=== PATIENT | male | born 1970 | race American Indian/Alaskan Native ===

== ENCOUNTER 2020-07-09 10:53 | Emergency (ER) | payer MEDICAID ==
[2020-07-09] MEDS ORDERED: MORPHINE 4 MG/1 ML INJ IV ONE (11:06)
[2020-07-09] MEDS ORDERED: ONDANSETRON 4 MG/2 ML INJ IV ONE ×2 (11:06→11:42)
--- NOTE | 2020-07-09 11:06 | Event Note ---
ED Screening Note Date of service: 07/09/20 Time: 11:05 ED Screening Note: Patient complains of upper/left-sided abdominal pain x2 days States possible history of bowel obstruction Patient appears to be very uncomfortable holding abdomen This initial assessment/diagnostic orders/clinical plan/treatment(s) is/are subject to change based on patients health status, clinical progression and re- assessment by fellow clinical providers in the ED. Further treatment and workup at subsequent clinical providers discretion. Patient/guardian urged not to elope from the ED as their condition may be serious if not clinically assessed and managed. Initial orders include: Labs
--- NOTE | 2020-07-09 11:47 | Emergency Department Report ---
ED Abdominal Pain HPI - General Chief Complaint: Abdominal Pain Stated Complaint: ABD PAIN Time Seen by Provider: 07/09/20 11:04 Source: patient Mode of arrival: Wheelchair Limitations: No Limitations - History of Present Illness Initial Comments: 49-year-old male, history of hypertension, presents to the ED with epigastric abdominal pain x3 days. Patient states pain is burning and pressure-like, nonradiating. Patient states he was seen by his PCP on yesterday who gave him a prescription for antibiotics, BP meds, and acid reflux medication. Patient reports nausea, no vomiting. He denies diarrhea or constipation. Patient denies any bloody stools or dark black stools. Patient denies any fever. Patient reports he stopped smoking and drinking approximately 6 months ago, denies any drug use. Patient hypertensive at triage. History of hypertension, noncompliant with medications. Patient states he has been off of BP meds for approximately 1 year now, states he previously took atenolol. Patient reports he re-started his blood pressure medicine this morning after seeing his doctor on yesterday and getting his medications filled. Patient reports taking lisinopril and isosorbide dinitrate. MD Complaint: abdominal pain -: days(s) (3) Location: epigastric Radiation: none Migration to: no migration Severity: severe Severity scale (0 -10): 10 Quality: burning, other (pressure) Consistency: constant Improves With: nothing Worsens With: nothing Associated Symptoms: nausea. denies: vomiting, diarrhea, fever, constipation, hematemesis, hematochezia, melena - Related Data Home Medications Medication Instructions Recorded Confirmed Last Taken Aspirin 325 mg PO ONCE 01/17/13 01/17/13 01/15/13 Omeprazole [Prilosec] 40 mg PO QDAY 01/17/13 01/17/13 01/24/13 atenoloL [Tenormin] 25 mg PO DAILY 01/17/13 01/17/13 01/24/13 Omeprazole [Prilosec] 40 mg PO QDAY 01/25/13 01/25/13 01/24/13 atenoloL [Tenormin] 25 mg PO DAILY 01/25/13 01/25/13 01/24/13 Previous Rx's Medication Instructions Recorded Last Taken Type Dicyclomine [Bentyl] 20 mg PO QID PRN #20 tablet 07/09/20 Unknown Rx Allergies Allergy/AdvReac Type Severity Reaction Status Date / Time No Known Allergies Allergy Verified 07/09/20 11:03 ED Review of Systems ROS: Stated complaint: ABD PAIN Other details as noted in HPI Comment: All other systems reviewed and negative Constitutional: denies: chills, fever Gastrointestinal: abdominal pain, nausea. denies: vomiting, diarrhea, constipation, hematemesis, melena, hematochezia ED Past Medical Hx - Past Medical History Hx Hypertension: Yes Hx Heart Attack/AMI: No Hx GERD: Yes Additional medical history: A FIB - Social History Smoking Status: Never Smoker Substance Use Type: None - Medications Home Medications: Home Medications Medication Instructions Recorded Confirmed Last Taken Type Aspirin 325 mg PO ONCE 01/17/13 01/17/13 01/15/13 History Omeprazole [Prilosec] 40 mg PO QDAY 01/17/13 01/17/13 01/24/13 History atenoloL [Tenormin] 25 mg PO DAILY 01/17/13 01/17/13 01/24/13 History Omeprazole [Prilosec] 40 mg PO QDAY 01/25/13 01/25/13 01/24/13 History atenoloL [Tenormin] 25 mg PO DAILY 01/25/13 01/25/13 01/24/13 History Dicyclomine [Bentyl] 20 mg PO QID PRN #20 tablet 07/09/20 Unknown Rx ED Physical Exam - General Limitations: No Limitations General appearance: alert, other (appears uncomfortable) - Head Head exam: Present: atraumatic, normocephalic - Eye Eye exam: Present: normal appearance, EOMI - ENT ENT exam: Present: mucous membranes moist - Neck Neck exam: Present: normal inspection - Respiratory Respiratory exam: Present: normal lung sounds bilaterally. Absent: respiratory distress - Cardiovascular Cardiovascular Exam: Present: normal rhythm, bradycardia - GI/Abdominal GI/Abdominal exam: Present: soft, tenderness (epigastric). Absent: distended - Extremities Exam Extremities exam: Present: normal inspection - Neurological Exam Neurological exam: Present: alert, oriented X3, CN II-XII intact. Absent: motor sensory deficit - Psychiatric Psychiatric exam: Present: normal affect, normal mood - Skin Skin exam: Present: warm, dry, intact, normal color ED Course Vital Signs 07/09/20 07/09/20 07/09/20 11:08 11:40 11:54 Temperature 98.6 F Pulse Rate 54 L 51 L Respiratory 24 20 20 Rate Blood Pressure Blood Pressure 225/86 221/102 [Right] O2 Sat by Pulse 100 100 100 Oximetry 07/09/20 07/09/20 07/09/20 13:01 13:42 14:02 Temperature Pulse Rate 50 L 67 75 Respiratory 16 16 Rate Blood Pressure 210/100 Blood Pressure 183/75 162/86 [Right] O2 Sat by Pulse 100 99 Oximetry ED Medical Decision Making - Lab Data Result diagrams: 07/09/20 11:10 07/09/20 11:10 - EKG Data -: EKG Interpreted by Wy EKG shows normal: sinus rhythm, axis, intervals, QRS complexes, ST-T waves Rate: bradycardia (rate 48) - EKG Data Interpretation: no acute changes - Radiology Data Radiology results: report reviewed, image reviewed - Medical Decision Making 49-year-old male with abdominal pain x3 days. Patient has history of uncontrolled hypertension, recently started BP meds this morning. Arrived in th e ED hypertensive. IV hydralazine given. BP improved from 225/86 to 162/86. Due to abdominal pain and elevated blood pressure, patient for CT chest/ abdomen/pelvis, aorta protocol. CT scan found to be normal. Patient reports improvement of pain with IV morphine and GI cocktail. Labs are unremarkable. EKG shows bradycardia, no ST changes. Troponin negative x2. Patient will be discharged at this time. Outpatient follow-up with PCP advised. Return precautions given. - Differential Diagnosis Aortic dissection, perforated viscus, pancreatitis, GERD, ACS Critical care attestation.: If time is entered above; I have spent that time in minutes in the direct care of this critically ill patient, excluding procedure time. ED Disposition Clinical Impression: Uncontrolled hypertension, Abdominal pain Disposition: - TO HOME OR SELFCARE Is pt being admited?: No Condition: Stable Instructions: Abdominal Pain, Adult, Qhog-hu-[id number], Managing Your Hypertension, Hypertension (ED) Prescriptions: Dicyclomine [Bentyl] 20 mg PO QID PRN #20 tablet PRN Reason: abdominal pain Referrals: PRIMARY CARE, [Referring] - 3-5 Days Time of Disposition: 15:18
[2020-07-09 11:49] LABS: Basophils # (Auto) 0.2 K/mm3 (0.0-0.1); Basophils % (Auto) 2.3 % (0.0-1.8); Eosinophils # (Auto) 0.5 K/mm3 (0.0-0.4); Hematocrit 47.7 % (35.5-45.6); Hemoglobin 16.2 gm/dl (11.8-15.2); Lymphocytes # (Auto) 3.1 K/mm3 (1.2-5.4); Lymphocytes % (Auto) 38.5 % (13.4-35.0); Mean Corpuscular HGB Conc 34 % (32-34); Mean Corpuscular Volume 81 fl (84-94); Monocytes # (Auto) 0.6 K/mm3 (0.0-0.8); Monocytes % (Auto) 7.6 % (0.0-7.3); Platelet Count 249 K/mm3 (140-440); Red Cell Distribution Width 14.4 % (13.2-15.2)
[2020-07-09] MEDS ORDERED: hydrALAZINE 20 MG/1 ML INJ IV ONE (12:00)
[2020-07-09 12:07] LABS: Alanine Aminotransferase 29 units/L (7-56); Albumin 4.4 g/dL (3.9-5); BUN/Creatinine Ratio 11; Blood Urea Nitrogen 11 mg/dL (9-20); Calcium 9.6 mg/dL (8.4-10.2); Hemolysis Index 4
[2020-07-09 13:04] LABS: INR 0.9 (0.87-1.13)
[2020-07-09 13:05] LABS: Partial Thromboplastin Time 25.9 Sec. (24.2-36.6)
--- NOTE | 2020-07-09 13:06 | XRay Report ---
ABDOMEN 4 VIEW(S) INDICATION / CLINICAL INFORMATION: epigastric pain. COMPARISON: None available. FINDINGS: TUBES / LINES: None. BOWEL GAS PATTERN: No dilated loops of small bowel are seen. FREE AIR / EXTRALUMINAL GAS: None seen. ADDITIONAL FINDINGS: No acute findings on the included chest radiograph. IMPRESSION: 1. No radiographic evidence of acute abdomen. Signer Name: Jorge Caro MD Signed: 07/09/2020 1:01 PM Workstation Name: [id number]
[2020-07-09 13:42] LABS: Bilirubin,Urine NEG (Negative); Blood,Urine NEG (Negative); Color,Urine Straw (Yellow); Protein,Urine <15 mg/dL mg/dL (Negative); Urobilinogen,Urine < 2.0 mg/dL (<2.0); WBC,Urine < 1.0 /HPF (0.0-6.0)
--- NOTE | 2020-07-09 13:43 | Cat Scan Report ---
CTA CHEST, ABDOMEN, AND PELVIS WITH CONTRAST INDICATION / CLINICAL INFORMATION: Hypertension, epigastric pain. TECHNIQUE: Axial CT images were obtained through the chest, abdomen, and pelvis after injection of 100 cc Omnipa que 350 IV contrast. 3 plane MIP and/or 3D reconstructions were produced. All CT scans at this locati on are performed using CT dose reduction for ALARA by means of automated exposure control. Any percen t stenosis measurements are based on criteria similar to NASCET. COMPARISON: None available. FINDINGS: HEART: No significant abnormality. THORACIC AORTA: No significant abnormality. GREAT VESSELS: No significant abnormality. PULMONARY ARTERIES: No significant abnormality. ADDITIONAL CHEST FINDINGS: No significant abnormality. ABDOMINAL AORTA: No significant abnormality. RENAL ARTERIES: No significant abnormality. CELIAC ARTERY: No significant abnormality. SUPERIOR MESENTERIC ARTERY: No significant abnormality. INFERIOR MESENTERIC ARTERY: No significant abnormality. RIGHT ILIAC ARTERIES: Mild atherosclerotic plaque without stenosis or occlusion.. LEFT ILIAC ARTERIES: Mild atherosclerotic plaque without stenosis or occlusion. ADDITIONAL ABDOMINOPELVIC FINDINGS: Small cyst in the medial left kidney. SKELETAL STRUCTURES: No significant abnormality. IMPRESSION: 1. No evidence of aortic dissection or other acute vascular abnormality. Signer Name: Gume Tello MD Signed: 07/09/2020 1:38 PM Workstation Name: [id number]
[2020-07-09] MEDS ORDERED: LIDOCAINE VISCOUS 2% 15 ML ORAL LIQD PO ONE (13:54)
[2020-07-09] MEDS ORDERED: ALUM-MAG HYDROXIDE-SIMETHICONE 200-200-20MG/5ML ORAL LIQD 30 ML PO ONE (13:54)
[2020-07-09 14:04] VITALS: BP 162/86
--- NOTE | 2020-07-10 11:19 | Electrocardiograph Report ---
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
== END 2020-07-09 15:30 | disposition home or self-care (01) ==
LOC: ED 10:53
DX: I10 Essential (primary) hypertension (principal); R10.13 Epigastric pain; K21.9 Gastro-esophageal reflux disease without esophagitis; Z79.82 Long term (current) use of aspirin; Z79.899 Other long term (current) drug therapy
CPT/HCPCS: 36415; 71275; 74022; 74174; 80053; 81001; 83690; 84484; 85025; 85610; 85730; 93005; 96374; 96375; 99285; J0360; J2270; J2405; Q9967

== ENCOUNTER 2021-01-27 13:55 | Emergency (ER) | payer MEDICAID ==
--- NOTE | 2021-01-27 14:53 | Emergency Department Report ---
ED Extremity Problem HPI - General Chief complaint: Shoulder Injury Stated complaint: RT SHOULDER PAIN Time Seen by Provider: 01/27/21 14:34 Source: patient Mode of arrival: Ambulatory Limitations: No Limitations - History of Present Illness Initial comments: Patient is a 50-year-old male presents emergency room with complaints of right arm/right shoulder pain that began 01/20/21. He states he received his second Covid vaccine dose and then began feeling the pain after vaccination. He states he has pain whenever he reaches up to grab something. He states he has had previous problems with his rotator cuff in the past due to a sports related injury but has never had to have surgery. He denies any numbness or weakness. He denies any swelling or redness. PMHx HTN, he states he did not take his lisinopril today, reports he does have it at home. No allergies to medications. - Related Data Home Medications Medication Instructions Recorded Confirmed Last Taken Aspirin 325 mg PO ONCE 01/17/13 01/17/13 01/15/13 Omeprazole [Prilosec] 40 mg PO QDAY 01/17/13 01/17/13 01/24/13 atenoloL [Tenormin] 25 mg PO DAILY 01/17/13 01/17/13 01/24/13 Omeprazole [Prilosec] 40 mg PO QDAY 01/25/13 01/25/13 01/24/13 atenoloL [Tenormin] 25 mg PO DAILY 01/25/13 01/25/13 01/24/13 Previous Rx's Medication Instructions Recorded Last Taken Type Dicyclomine [Bentyl] 20 mg PO QID PRN #20 tablet 07/09/20 Unknown Rx Menthol/Camphor [[place] 1 applicatio TP BID #18 oint...g. 01/27/21 Unknown Rx Ointment] Naproxen 375 mg PO BID PRN #20 tablet 01/27/21 Unknown Rx Allergies Allergy/AdvReac Type Severity Reaction Status Date / Time No Known Allergies Allergy Verified 07/09/20 11:03 ED Review of Systems ROS: Stated complaint: RT SHOULDER PAIN Other details as noted in HPI Comment: All other systems reviewed and negative ED Past Medical Hx - Past Medical History Previous Medical History?: Yes Hx Hypertension: Yes Hx Heart Attack/AMI: No Hx GERD: Yes Additional medical history: A FIB - Social History Smoking Status: Never Smoker Substance Use Type: None - Medications Home Medications: Home Medications Medication Instructions Recorded Confirmed Last Taken Type Aspirin 325 mg PO ONCE 01/17/13 01/17/13 01/15/13 History Omeprazole [Prilosec] 40 mg PO QDAY 01/17/13 01/17/13 01/24/13 History atenoloL [Tenormin] 25 mg PO DAILY 01/17/13 01/17/13 01/24/13 History Omeprazole [Prilosec] 40 mg PO QDAY 01/25/13 01/25/13 01/24/13 History atenoloL [Tenormin] 25 mg PO DAILY 01/25/13 01/25/13 01/24/13 History Dicyclomine [Bentyl] 20 mg PO QID PRN #20 tablet 07/09/20 Unknown Rx Menthol/Camphor [[place] 1 applicatio TP BID #18 oint...g. 01/27/21 Unknown Rx Ointment] Naproxen 375 mg PO BID PRN #20 tablet 01/27/21 Unknown Rx ED Physical Exam - General Limitations: No Limitations General appearance: alert, in no apparent distress - Head Head exam: Present: atraumatic, normocephalic - Eye Eye exam: Present: normal appearance - ENT ENT exam: Present: mucous membranes moist - Extremities Exam Extremities exam: Present: other (mild ttp to the right deltoid, no edema, no erythema, FROM of the RUE, mild discomfort with full flexion above the head of the right shoulder, clavicles are equal, no clavicular ttp, no sulcus sign, neurovascularly intact) - Neurological Exam Neurological exam: Present: alert, oriented X3 - Psychiatric Psychiatric exam: Present: normal affect, normal mood - Skin Skin exam: Present: warm, dry, intact ED Course Vital Signs 01/27/21 01/27/21 14:16 15:17 Temperature 98.8 F 98.4 F Pulse Rate 63 72 Respiratory 18 18 Rate Blood Pressure 182/86 Blood Pressure 206/97 [Right] O2 Sat by Pulse 98 100 Oximetry ED Medical Decision Making - Medical Decision Making Patient is a 50-year-old male presents emergency room with complaints of right a rm/right shoulder pain that began 10/5/21. He states he received his second Covid vaccine dose and then began feeling the pain after vaccination. He states he has pain whenever he reaches up to grab something. He states he has had previous problems with his rotator cuff in the past due to a sports related injury but has never had to have surgery. He denies any numbness or weakness. He denies any swelling or redness. PMHx HTN, he states he did not take his lisinopril today, reports he does have it at home. No allergies to medications. Vitals with elevated blood pressure, patient did not take his medication, discussed the importance of taking his medication as prescribed by his doctor, discussed lifestyle modifications, keeping a blood pressure log. On exam:mild ttp to the right deltoid, no edema, no erythema, FROM of the RUE, mild discomfort with full flexion above the head of the right shoulder, clavicles are equal, no clavicular ttp, no sulcus sign, neurovascularly intact. No signs of infection. Patient has had no significant trauma. He has full range of motion. Symptoms could be related to deltoid soreness from vaccine injection. Patient also could have referred pain from prior rotator cuff issues and could be rotator cuff tendinitis. Patient given prescription for medication. pt will be referred to orthopedic doctor for reexamination. Advised patient Please use medication as prescribed. Follow-up with orthopedic doctor. Follow-up with your primary care doctor. Please take your blood pressure medication as prescribed by your doctor. Eat a low-sodium diet, increase your water intake, incorporate 30-60 minutes of daily exercise. Keep a blood pressure log and take this to your primary care doctor. Return to emergency room for any new or worsening symptoms. Critical care attestation.: If time is entered above; I have spent that time in minutes in the direct care of this critically ill patient, excluding procedure time. ED Disposition Clinical Impression: Elevated blood pressure reading Arm pain Qualifiers: Laterality: right Qualified Code(s): M79.601 - Pain in right arm Disposition: 01 HOME / SELF CARE / HOMELESS Is pt being admited?: No Does the pt Need Aspirin: No Condition: Stable Additional Instructions: Please use medication as prescribed. Follow-up with orthopedic doctor. Follow- up with your primary care doctor. Please take your blood pressure medication as prescribed by your doctor. Eat a low-sodium diet, increase your water intake, incorporate 30-60 minutes of daily exercise. Keep a blood pressure log and take this to your primary care doctor. Return to emergency room for any new or worsening symptoms. Prescriptions: Naproxen 375 mg PO BID PRN #20 tablet PRN Reason: pain Menthol/Camphor [[place] Ointment] 1 applicatio TP BID #18 oint...g. Referrals: JP JEAN-BAPTISTE MD [Staff Physician] - 3-5 Days [facility] [Provider Group] - 3-5 Days Forms: Work/School Release Form(ED) Time of Disposition: 14:55 Print Language: [place]
[2021-01-27 15:20] VITALS: BP 206/97
== END 2021-01-27 15:16 | disposition home or self-care (01) ==
LOC: ED 13:55
DX: M79.601 Pain in right arm (principal); I10 Essential (primary) hypertension
CPT/HCPCS: 99282

== ENCOUNTER 2021-09-26 17:58 | Emergency (ER) | payer MEDICAID ==
[2021-09-26 18:33] VITALS: BP 156/100
== END 2021-09-26 22:24 | disposition left against medical advice (07) ==
LOC: ED 17:58
DX: M79.644 Pain in right finger(s) (principal); Z53.21 Procedure and treatment not carried out due to patient leaving prior to being seen by health care provider